=== PATIENT | female | born 1985 | race Two or more races ===

== ENCOUNTER 2023-02-20 17:38 | Emergency (ER) | payer MEDICAID ==
[~2023-02-20] VITALS: Ht 160 cm; Wt 79.2 kg
[2023-02-20 20:04] VITALS: BP 141/96; PULSE 87; RESP 18; TEMP 97.9; O2SAT 97
[2023-02-20] MEDS ORDERED: KETOROLAC TROMETH 60MG/2ML VIAL IM ONE (20:15)
[2023-02-20 21:12] LABS: Basophils # (auto) 0.1 10 ^3/uL (0-0.2); Basophils % (auto) 0.6 % (0.0-2.0); Eosinophils # (auto) 0.3 10 ^3/uL (0-0.8); Eosinophils % (auto) 2.8 % (0.0-7.0); Hematocrit 39.8 % (36.0-46.0); Hemoglobin 13.3 g/dL (12.2-16.2); Lymphocytes # (auto) 2.3 10 ^3/uL (0.4-5.4); Lymphocytes % (auto) 23.4 % (10.0-50.0); Mean Corpuscular Hemoglobin 27.9 pg (28.0-32.0); Mean Corpuscular Hgb Conc. 33.5 g/dL (32.0-36.0); Mean Corpuscular Volume 83.3 fL (80.0-100.0); Monocytes # (auto) 0.9 10 ^3/uL (0-1.3); Monocytes % (auto) 8.5 % (0.0-12.0); Neutrophils # (auto) 6.5 10 ^3/uL (1.6-8.6); Neutrophils % (auto) 64.7 % (37.0-80.0); Nucleated Red Blood Cells % 0.1 %; Red Blood Cells 4.78 10^6/uL (4.0-5.20); Red Cell Distribution Width 14.1 % (11.8-14.3)
[2023-02-20 21:30] LABS: Urine Bacteria NONE SEEN /hpf (None Seen); Urine Blood 1+ /uL (Negative); Urine Clarity Clear (Clear); Urine Color Yellow (Yellow); Urine Mucus FEW (None Seen); Urine Protein, UAD TRACE (Negative); Urine Specific Gravity 1.032 (1.001-1.035); Urine Urobilinogen Normal (Negative); Urine WBC 6 /hpf (0 - 5)
[2023-02-20 21:32] LABS: Alanine Aminotransferase 17 U/L (7-40); Albumin 4.6 g/dL (3.2-4.8); Alkaline Phosphatase 70 U/L (46-116); Anion Gap 7 (5-15); Aspartate Aminotransferase 16 U/L (13-40); BUN/Creatinine Ratio 19.1 (10.0-20.0); Bilirubin, Total 0.6 mg/dL (0.2-1.0); Blood Urea Nitrogen 13 mg/dL (9-23); Calcium 9.2 mg/dL (8.5-10.1); Carbon Dioxide 23 mmol/L (20-30); Chloride 107 mmol/L (98-107); Glucose 92 mg/dL (74-106); Potassium 3.7 mmol/L (3.5-5.1); Sodium 137 mmol/L (136-145); Total Protein 7.7 g/dL (5.7-8.2)
[2023-02-20] MEDS ORDERED: IBUP-1455 PO ×2 (22:06→23:23)
[2023-02-20] MEDS ORDERED: TRAM50TA2 PO ×2 (22:06→23:23)
[2023-02-20] MEDS ORDERED: PER60TP TOP ×2 (22:20→23:23)
== END 2023-02-20 22:21 | disposition home or self-care (01) ==
LOC: ER 17:38
DX: G56.03 Carpal tunnel syndrome, bilateral upper limbs (principal); M54.50 Low back pain, unspecified
CPT/HCPCS: 36415; 72040; 72100; 80053; 81001; 85025; 96372; 99284; J1885

== ENCOUNTER 2023-02-24 12:51 | Emergency (ER) | payer MEDICAID ==
[~2023-02-24] VITALS: Ht 160 cm; Wt 81.3 kg
[~2023-02-24 12:51] MED LIST: IBUP-1455 PO; PER60TP TOP; TRAM50TA2 PO
[2023-02-24 13:48] VITALS: BP 116/79; PULSE 77; RESP 18; O2SAT 98
[2023-02-24] MEDS ORDERED: TOB03OS OP (14:15)
[2023-02-24] MEDS ORDERED: FLUORESCEIN SOD OPTH TEST STRIP OP ONE (14:15)
== END 2023-02-24 14:31 | disposition home or self-care (01) ==
LOC: ER 12:51
DX: S05.01XA Injury of conjunctiva and corneal abrasion without foreign body, right eye, initial encounter (principal); Z79.1 Long term (current) use of non-steroidal anti-inflammatories (NSAID); Z79.899 Other long term (current) drug therapy; X58.XXXA Exposure to other specified factors, initial encounter; Y93.89 Activity, other specified; Y92.89 Other specified places as the place of occurrence of the external cause; Y99.8 Other external cause status

== ENCOUNTER 2023-10-19 08:55 | Emergency (ER) | payer MEDICAID ==
[~2023-10-19] VITALS: Ht 162.6 cm; Wt 86.0 kg
[~2023-10-19 08:55] MED LIST changes: +TOB03OS OP
[2023-10-19 09:55] VITALS: BP 131/90; PULSE 98; RESP 18; TEMP 99; O2SAT 98
[2023-10-19] MEDS ORDERED: FEXO-119 PO (13:45)
[2023-10-19] MEDS ORDERED: DEXT60TA4 PO (13:45)
[2023-10-19] MEDS ORDERED: FLUT1SPR21 (13:45)
== END 2023-10-19 10:03 | disposition left against medical advice (07) ==
LOC: ER 08:55
DX: R09.89 Other specified symptoms and signs involving the circulatory and respiratory systems (principal); R05.9 Cough, unspecified; H92.03 Otalgia, bilateral; R53.1 Weakness; Z53.21 Procedure and treatment not carried out due to patient leaving prior to being seen by health care provider

== ENCOUNTER 2023-10-19 12:03 | Emergency (ER) | payer MEDICAID ==
[~2023-10-19] VITALS: Ht 162.6 cm; Wt 86.4 kg
[2023-10-19 12:27] VITALS: BP 123/81; PULSE 82; RESP 18; TEMP 99; O2SAT 99
[2023-10-19] MEDS: IBUPROFEN 600 MG TAB PO ONE (13:21)
[2023-10-19] MEDS ORDERED: FEXO-119 PO (13:45)
[2023-10-19] MEDS ORDERED: FLUT1SPR21 (13:45)
[2023-10-19] MEDS ORDERED: DEXT60TA4 PO (13:45)
== END 2023-10-19 13:53 | disposition home or self-care (01) ==
LOC: ER 12:03
DX: J30.9 Allergic rhinitis, unspecified (principal); R05.9 Cough, unspecified; Z79.899 Other long term (current) drug therapy